=== PATIENT | female | born 1935 | race Caucasian/White ===

== ENCOUNTER 2020-12-11 16:12 | Inpatient (IN) | payer MEDICARE ==
[~2020-12-11] VITALS: Ht 160 cm; Wt 42.3 kg
[~2020-12-11 16:12] MED LIST: PLAVIX75 MG PO; PRILOSEC OTC20 MG PO
[2020-12-11 16:17] VITALS: BP 134/84
[2020-12-11 17:02] LABS: BASO % 0.3 % (0.0-1.0); EOS # 0.1 10*3/uL (0.0-0.4); HEMATOCRIT 33.2 % (37.0-47.0); LYMPH # 0.9 10*3/uL (1.3-4.4); LYMPH % 10.1 % (27.0-41.0); MEAN CELL VOLUME 90.5 fl (81.0-99.0); MEAN CORPUSCULAR HGB 28.1 pg (27.0-31.0); MEAN PLATELET VOLUME 10.7 fl (9.6-12.3); MONO # 0.5 10*3/uL (0.1-1.0); MONO % 5.8 % (3.0-9.0); NEUT # 7.2 10*3/uL (2.3-7.9); NEUT % 82.1 % (47.0-73.0); PLATELET COUNT AUTOMATED 155 10*3/uL (130-400); RED BLOOD COUNT 3.67 10*6/uL (4.10-5.10); WHITE BLOOD COUNT 8.8 10*3/uL (4.8-10.8)
[2020-12-11 17:14] LABS: ACT PARTIAL THROMBO TIME 30.3 SECONDS (20.0-32.1); INTERNATIONAL NORM RATIO 1.1 (2.0-3.5)
[2020-12-11 17:19] LABS: BUN 23 mg/dl (7-24); CHLORIDE 112 mmol/L (98-107); CREATININE 0.56 mg/dL (0.55-1.02); POTASSIUM 4.2 mmol/L (3.5-5.1); SODIUM 142 mmol/L (136-145)
[2020-12-11] MEDS ORDERED: ASPIRIN ADULT L81 M1 PO (19:30)
[2020-12-11 20:22] VITALS: BP 116/47
[2020-12-12] VITALS (10 sets, daily range): BP systolic 102–120; BP diastolic 52–71
[2020-12-12 06:59] LABS: BASO % 0.3 % (0.0-1.0); EOS % 0.1 % (1.0-4.0); HEMATOCRIT 29.3 % (37.0-47.0); LYMPH % 12.7 % (27.0-41.0); MEAN CELL VOLUME 91.8 fl (81.0-99.0); MEAN CORPUSCULAR HGB 27.9 pg (27.0-31.0); MEAN CORPUSCULAR HGB CONC 30.4 g/dl (33.0-37.0); MEAN PLATELET VOLUME 11.1 fl (9.6-12.3); MONO # 0.7 10*3/uL (0.1-1.0); NEUT % 77.5 % (47.0-73.0); PLATELET COUNT AUTOMATED 161 10*3/uL (130-400); RED BLOOD COUNT 3.19 10*6/uL (4.10-5.10); RED CELL DISTRI WIDTH 14.2 % (0-14.5); WHITE BLOOD COUNT 7.8 10*3/uL (4.8-10.8)
[2020-12-12 07:26] LABS: ACT PARTIAL THROMBO TIME 32.8 SECONDS (20.0-32.1); ALBUMIN 2.9 gm/dl (3.1-4.5); BUN 27 mg/dl (7-24); CHLORIDE 110 mmol/L (98-107); CHOLESTEROL 124 mg/dL (<200); CREATININE 0.77 mg/dL (0.55-1.02); INTERNATIONAL NORM RATIO 1.1 (2.0-3.5); POTASSIUM 4.4 mmol/L (3.5-5.1); SGOT/AST 11 IU/L (3-35); SGPT/ALT 19 U/L (12-78); SODIUM 141 mmol/L (136-145); TRIGLYCERIDES 65 mg/dl (<150); VLDL CHOLESTEROL 13 mg/dL (6-40)
[2020-12-12 07:36] LABS: ALKALINE PHOSPHATASE 72 U/L (45-117); FREE T4 1.15 ng/dl (0.76-1.46); HDL CHOLESTEROL 38 mg/dl (40-60); LDL CHOLESTEROL 73 mg/dL (9-159); THYROID STIM HORMONE (HS) 0.584 uIU/ml (0.358-4.75); TOTAL PROTEIN 6.2 gm/dL (6.4-8.2)
[2020-12-12 08:12] LABS: VITAMIN D, 25-HYDROXY 36.3 ng/mL (30-100)
[2020-12-13] VITALS: BP 103/53
[2020-12-13 07:21] LABS: BASO % 0.2 % (0.0-1.0); EOS % 0.2 % (1.0-4.0); HEMATOCRIT 24.5 % (37.0-47.0); LYMPH # 1.2 10*3/uL (1.3-4.4); MEAN CELL VOLUME 90.1 fl (81.0-99.0); MEAN CORPUSCULAR HGB 27.9 pg (27.0-31.0); MEAN PLATELET VOLUME 11.3 fl (9.6-12.3); MONO % 10.8 % (3.0-9.0); NEUT # 6.7 10*3/uL (2.3-7.9); NEUT % 75.6 % (47.0-73.0); PLATELET COUNT AUTOMATED 143 10*3/uL (130-400); RED BLOOD COUNT 2.72 10*6/uL (4.10-5.10); RED CELL DISTRI WIDTH 14.3 % (0-14.5); WHITE BLOOD COUNT 8.9 10*3/uL (4.8-10.8)
[2020-12-13 07:49] LABS: BUN 31 mg/dl (7-24); CHLORIDE 113 mmol/L (98-107); CREATININE 0.66 mg/dL (0.55-1.02); SODIUM 142 mmol/L (136-145)
[2020-12-13 08:00] VITALS: BP 108/56
[2020-12-13 12:00] VITALS: BP 98/69
[2020-12-13 16:00] VITALS: BP 109/65
[2020-12-13 20:00] VITALS: BP 111/59
[2020-12-14] VITALS: BP 120/59
[2020-12-14 06:45] LABS: BASO % 0.1 % (0.0-1.0); EOS % 0.5 % (1.0-4.0); HEMATOCRIT 23.7 % (37.0-47.0); LYMPH # 1.1 10*3/uL (1.3-4.4); LYMPH % 14.5 % (27.0-41.0); MEAN CELL VOLUME 90.5 fl (81.0-99.0); MEAN CORPUSCULAR HGB 27.9 pg (27.0-31.0); MEAN CORPUSCULAR HGB CONC 30.8 g/dl (33.0-37.0); MEAN PLATELET VOLUME 11.4 fl (9.6-12.3); MONO # 0.7 10*3/uL (0.1-1.0); MONO % 9.7 % (3.0-9.0); NEUT # 5.5 10*3/uL (2.3-7.9); NEUT % 75.1 % (47.0-73.0); PLATELET COUNT AUTOMATED 127 10*3/uL (130-400); RED BLOOD COUNT 2.62 10*6/uL (4.10-5.10); RED CELL DISTRI WIDTH 14.5 % (0-14.5); WHITE BLOOD COUNT 7.3 10*3/uL (4.8-10.8)
[2020-12-14 07:12] LABS: BUN 29 mg/dl (7-24); CHLORIDE 113 mmol/L (98-107); CREATININE 0.46 mg/dL (0.55-1.02); POTASSIUM 4.1 mmol/L (3.5-5.1); SODIUM 142 mmol/L (136-145)
[2020-12-14 08:00] VITALS: BP 109/63
[2020-12-14 12:00] VITALS: BP 110/66
[2020-12-14 16:00] VITALS: BP 104/57
[2020-12-14 20:00] VITALS: BP 112/62
[2020-12-15] VITALS: BP 106/59
[2020-12-15 06:21] LABS: BASO % 0.3 % (0.0-1.0); EOS # 0.1 10*3/uL (0.0-0.4); EOS % 1.7 % (1.0-4.0); HEMATOCRIT 23.4 % (37.0-47.0); LYMPH # 1.2 10*3/uL (1.3-4.4); LYMPH % 18.8 % (27.0-41.0); MEAN CELL VOLUME 90.7 fl (81.0-99.0); MEAN CORPUSCULAR HGB 27.9 pg (27.0-31.0); MEAN CORPUSCULAR HGB CONC 30.8 g/dl (33.0-37.0); MEAN PLATELET VOLUME 11.4 fl (9.6-12.3); MONO # 0.6 10*3/uL (0.1-1.0); MONO % 9.8 % (3.0-9.0); NEUT # 4.4 10*3/uL (2.3-7.9); NEUT % 69.1 % (47.0-73.0); PLATELET COUNT AUTOMATED 148 10*3/uL (130-400); RED BLOOD COUNT 2.58 10*6/uL (4.10-5.10); RED CELL DISTRI WIDTH 14.4 % (0-14.5); WHITE BLOOD COUNT 6.4 10*3/uL (4.8-10.8)
[2020-12-15 08:00] VITALS: BP 100/60
[2020-12-15 12:00] VITALS: BP 99/81
[2020-12-15] MEDS ORDERED: VITAMIN D350 MC2 PO (15:09)
[2020-12-15] MEDS ORDERED: NICODERM T (15:09)
[2020-12-15] MEDS ORDERED: HYDROCODONE-AC1 EAC1 PO (15:09)
[2020-12-15 16:02] VITALS: BP 110/57
== END 2020-12-15 17:18 | DRG 481 ==
LOC: ED 16:12 → EDHOLD 18:05 → 5E 18:05
PROVIDERS: Emergency Medicine; Internal Medicine; Orthopaedic Surgery; ADMIT Emergency Medicine; ATTEND Emergency Medicine
PROC: 0QS606Z Reposition Right Upper Femur with Intramedullary Internal Fixation Device, Open Approach (ICD-10-PCS; principal; 2020-12-12)
PROC: 0HBRXZZ Excision of Toe Nail, External Approach (ICD-10-PCS; 2020-12-12)
PROC: 0HBRXZZ Excision of Toe Nail, External Approach (ICD-10-PCS; 2020-12-12)
PROC: 0HBRXZZ Excision of Toe Nail, External Approach (ICD-10-PCS; 2020-12-12)
PROC: 0HBRXZZ Excision of Toe Nail, External Approach (ICD-10-PCS; 2020-12-12)
PROC: 0HBRXZZ Excision of Toe Nail, External Approach (ICD-10-PCS; 2020-12-12)
DX: S72.141A Displaced intertrochanteric fracture of right femur, initial encounter for closed fracture (principal); E44.0 Moderate protein-calorie malnutrition; D64.9 Anemia, unspecified; W19.XXXA Unspecified fall, initial encounter; Z95.828 Presence of other vascular implants and grafts; Z20.822 Contact with and (suspected) exposure to COVID-19; E87.8 Other disorders of electrolyte and fluid balance, not elsewhere classified; R73.9 Hyperglycemia, unspecified; R26.2 Difficulty in walking, not elsewhere classified; F17.210 Nicotine dependence, cigarettes, uncomplicated; M20.40 Other hammer toe(s) (acquired), unspecified foot; B35.1 Tinea unguium; Y92.89 Other specified places as the place of occurrence of the external cause; Y93.89 Activity, other specified; Y99.8 Other external cause status; Z71.6 Tobacco abuse counseling; I73.9 Peripheral vascular disease, unspecified; Z90.710 Acquired absence of both cervix and uterus; Z98.891 History of uterine scar from previous surgery; Z90.49 Acquired absence of other specified parts of digestive tract; Z79.82 Long term (current) use of aspirin

== ENCOUNTER → 2020-12-24 | Outpatient (CLI) | payer MEDICARE ==
[2020-12-24] VITALS (7 sets, daily range): BP systolic 101–119; BP diastolic 47–57
[~2020-12-24] MED LIST changes: +ASPIRIN ADULT L81 M1 PO; +HYDROCODONE-AC1 EAC1 PO; +NICODERM T; +VITAMIN D350 MC2 PO
== END | disposition home or self-care (01) ==
LOC: TRNFUSION 01:37
PROVIDERS: ATTEND Internal Medicine
DX: D64.9 Anemia, unspecified (principal); I73.9 Peripheral vascular disease, unspecified; F17.200 Nicotine dependence, unspecified, uncomplicated

== ENCOUNTER → 2020-12-30 | Outpatient (CLI) | payer MEDICARE | END | disposition home or self-care (01) | LOC: RAD 10:33 | PROVIDERS: ATTEND Orthopaedic Surgery | DX: S72.001D Fracture of unspecified part of neck of right femur, subsequent encounter for closed fracture with routine healing (principal); X58.XXXD Exposure to other specified factors, subsequent encounter ==